=== PATIENT | female | born 1955 | race Caucasian/White ===

== ENCOUNTER 2019-02-19 23:28 | Emergency (ER) | payer BC, MEDICAID ==
[2019-02-19] MEDS ORDERED: Acetaminophen TAB* 325 MG PO ONE (23:59)
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
[2019-02-20] MEDS ORDERED: ED Ceftriaxone 2 GM/50 ML 2 GM/2 ML PREMIX.SET IVPB ONE (00:01)
[2019-02-20] MEDS ORDERED: Vancomycin(*) 1,000 MG in NS 0.9% 250 ML* 250 ML IVPB ONE (00:01)
[2019-02-20] MEDS ORDERED: NS 0.9% 1000 ML** 2,000 ML IV ONE (00:01)
[2019-02-20] MEDS ORDERED: Ondansetron INJ* 2 MG/ML VIAL IV ONE (00:10)
[2019-02-20] MEDS ORDERED: Morphine 4 MG/ML VIAL (1 ml) 4 MG/ML VIAL IV ONE ×2 (00:10→00:43)
[2019-02-20] MEDS ORDERED: Dexamethasone IV* 4 MG/ML 1 ML (4 MG) IV SLOW PU ONE (00:10)
[2019-02-20] MEDS ORDERED: cefTRIAXone(*) 2 GM in NS 0.9% 100 ML* 100 ML IVPB ONE (00:20)
[2019-02-20 00:50] LABS: ABS Monocytes 1.5 10^3/ul (0-0.8); ABS Neutrophils 7.2 10^3/ul (1.5-7.7); Eosinophil % 0.1 %; Hematocrit 34 % (35-47); Lymphocyte % 10.4 %; Mean Corpuscular HGB Conc 35 g/dL (31-36); Mean Corpuscular Hemoglobin 30 pg (27-31); Mean Corpuscular Volume 86 fL (80-97); Mean Platelet Volume 7.1 fL (7.4-10.4); Platelet Count 296 10^3/uL (150-450); Red Blood Count 3.99 10^6 /uL (3.70-4.87); Red Cell Distribution Width 12 % (10-15); White Blood Count 9.8 10^3/uL (3.5-10.8)
[2019-02-20 00:58] LABS: Rapid Strep Molecular POSITIVE (Negative)
[2019-02-20 01:07] LABS: Albumin 3.8 g/dL (3.2-5.2); Albumin/Globulin Ratio 1.1 (1-3); BUN/Creatinine Ratio 27.5 (8-20); C Reactive Protein 125.02 mg/L (<8.01); EGFR African American 195.7 (>60); EGFR Non-African American 161.7 (>60); Globulin 3.5 g/dL (2-4); Potassium 3.5 mmol/L (3.5-5.0); Total Bilirubin 0.8 mg/dL (0.2-1.0); Total Protein 7.3 g/dL (6.4-8.9)
[2019-02-20 01:11] LABS: Activated Partial Thrombo Time 30.2 seconds (26.0-38.0); INR 1.21 (0.82-1.09)
[2019-02-20] MEDS ORDERED: Gadoteridol* (CONTRAST) 279.3 MG/ML 10 ML IV ONE (01:49)
[2019-02-20 06:31] VITALS: BP 121/72
--- NOTE | 2019-02-20 17:56 | PN ---
Progress Note - Progress Note Date of Service: 02/20/19 Note: Pt. seen in ED for sore throat and neck pain. Treated with Augmentin. No report of cough per ED note. Final CXR read per radiology: IMPRESSION: 1. SMALL BILATERAL NONSPECIFIC UPPER LOBE INFILTRATES POSSIBLY REPRESENTING FIBROSIS VERSUS PNEUMONIA. 2. FINDINGS CONSISTENT WITH COPD. R1F No change in treatment needed at this time.
--- NOTE | 2019-02-21 18:57 | PN ---
Progress Note - Progress Note Date of Service: 02/21/19 Note: Received results of preliminary blood culture from microbiology which is positive for gram-negative bacilli. Patient seen on 05/22 and discharge home with diagnosis of strep throat and given prescription for Augmentin, Decadron and Percocet. Attempted to call patient at home to advise her to return to the ED. First call at 1730 received only a busy signal. Attempts to call next of kin and sister were not successful as both phone numbers are no longer in service. Second call to Ms. Fry at 1858 received only busy signal again. We will leave note for daytime mid-level to follow up further.
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
== END 2019-02-20 06:30 | disposition home or self-care (01) ==
LOC: ED 23:28
DX: J02.0 Streptococcal pharyngitis (principal); M47.812 Spondylosis without myelopathy or radiculopathy, cervical region; M25.78 Osteophyte, vertebrae; R91.8 Other nonspecific abnormal finding of lung field; G82.20 Paraplegia, unspecified
CPT/HCPCS: 36415; 71045; 72156; 80053; 83605; 85025; 85610; 85730; 86140; 87040; 87651; 96361; 96365; 96375; 99283; A9270-GY; A9579; J0696; J1100; J2270; J2405; J3370

== ENCOUNTER 2019-05-05 09:22 | Emergency (ER) | payer BC, MEDICAID ==
[2019-05-05 11:03] LABS: ABS Eosinophils 0.1 10^3/ul (0-0.6); ABS Lymphocytes 1.8 10^3/ul (1.0-4.8); ABS Monocytes 0.5 10^3/ul (0-0.8); ABS Neutrophils 1.5 10^3/ul (1.5-7.7); Eosinophil % 3.4 %; Hematocrit 35 % (35-47); Hemoglobin 12.1 g/dL (12.0-16.0); Lymphocyte % 45.9 %; Mean Corpuscular HGB Conc 35 g/dL (31-36); Mean Corpuscular Hemoglobin 30 pg (27-31); Mean Corpuscular Volume 87 fL (80-97); Mean Platelet Volume 7.5 fL (7.4-10.4); Nucleated Red Blood Cells % 0.1; Platelet Count 309 10^3/uL (150-450); Red Blood Count 4.05 10^6 /uL (3.70-4.87); Red Cell Distribution Width 12 % (10-15)
[2019-05-05 11:57] LABS: Albumin 4.1 g/dL (3.2-5.2); Albumin/Globulin Ratio 1.5 (1-3); BUN/Creatinine Ratio 32.6 (8-20); C Reactive Protein 13.9 mg/L (<8.01); Calcium 9.8 mg/dL (8.6-10.3); EGFR African American 166.6 (>60); EGFR Non-African American 137.6 (>60); Globulin 2.7 g/dL (2-4); Potassium 4.2 mmol/L (3.5-5.0); Total Bilirubin 0.4 mg/dL (0.2-1.0); Total Protein 6.8 g/dL (6.4-8.9)
[2019-05-05 13:18] VITALS: BP 110/74
--- NOTE | 2019-05-05 17:36 | ED ---
Skin Complaint - HPI Summary HPI Summary: Patient is a 63-year-old female who presents emergency department for evaluation of wound to her left buttocks times roughly one week. She is a paraplegic and states she occasionally gets pressure sores but feels this is different as it has a foul odor to it. She denies fever, chills, abdominal pain , nausea, vomiting. Symptoms are [id number] in severity. Touching it makes symptoms worse. Nothing makes symptoms better. - History of Current Complaint Chief Complaint: EDRashSkinAbscess Time Seen by Provider: 05/05/19 10:24 Stated Complaint: PRESSURE SORE PER PT Hx Obtained From: Patient Pain Intensity: 3 Pain Scale Used: 0-10 Numeric - Allergy/Home Medications Allergies/Adverse Reactions: Allergies Allergy/AdvReac Type Severity Reaction Status Date / Time No Known Allergies Allergy Verified 02/19/19 23:37 Home Medications: Home Medications Oxybutynin TAB* [Ditropan TAB*] 10 mg PO DAILY 05/05/19 [History Confirmed 05/05] PMH/Surg Hx/FS Hx/Imm Hx Previously Healthy: Yes Endocrine/Hematology History: Denies: Hx Diabetes Cardiovascular History: Denies: Hx Hypertension, Hx Pacemaker/ICD History: Denies: Hx Renal Disease Musculoskeletal History: Reports: Other Musculoskeletal History - Paraplegic Sensory History: Denies: Hx Hearing Aid Psychiatric History: Reports: Hx Substance Abuse - former IVDU Denies: Hx Panic Disorder - Surgical History Surgery Procedure, Year, and Place: BACK SURGERY-FUSION, BREAST IMPLANTS Infectious Disease History: No Infectious Disease History: Denies: Traveled Outside the [place] in Last 30 Days - Family History Known Family History: Positive: Non-Contributory Family History: mental illness - Social History Occupation: Retired Lives: With Family Alcohol Use: None Substance Use Type: Reports: None Smoking Status (MU): Never Smoked Tobacco Review of Systems Constitutional: Negative Negative: Fever Gastrointestinal: Negative Negative: Abdominal Pain, Vomiting, Nausea Genitourinary: Negative Positive: Other - wound to left buttocks All Other Systems Reviewed And Are Negative: Yes Physical Exam Triage Information Reviewed: Yes Vital Signs On Initial Exam: Initial Vitals Temp Pulse Resp BP Pulse Ox 99 F 70 18 120/76 100 05/05/19 09:25 05/05/19 09:25 05/05/19 09:25 05/05/19 09:25 05/05/19 09:25 Vital Signs Reviewed: Yes Appearance: Positive: Well-Appearing - Pt. sitting up in bed in NAD. Skin: Positive: Warm, Dry, Other - Large, roughly 6cm in diameter, annular area of erythema with superficial wet ulceration in the center. Small amount of yellowish discharge. Area does not extend into the anal or perineal region. Head/Face: Positive: Normal Head/Face Inspection Eyes: Positive: Normal, EOMI Neck: Positive: Supple Musculoskeletal: Positive: Other - Paraplegic Neurological: Positive: Normal, CN Intact II-III Psychiatric: Positive: Affect/Mood Appropriate Diagnostics - Vital Signs Vital Signs Temp Pulse Resp BP Pulse Ox 05/05/19 13:16 98.2 F 78 18 110/74 100 05/05/19 11:42 72 100 05/05/19 11:40 71 107/60 99 05/05/19 09:25 99 F 70 18 120/76 100 - Laboratory Lab Results: Lab Results 05/05/19 05/05/19 Range/Units 10:49 10:49 WBC 4.0 (3.5-10.8) 10^3/uL RBC 4.05 (3.70-4.87) 10^6 /uL Hgb 12.1 (12.0-16.0) g/dL Hct 35 (35-47) % MCV 87 (80-97) fL MCH 30 (27-31) pg MCHC 35 (31-36) g/dL RDW 12 (10-15) % Plt Count 309 (150-450) 10^3/uL MPV 7.5 (7.4-10.4) fL Neut % (Auto) 36.6 % Lymph % (Auto) 45.9 % Eddy % (Auto) 13.1 % Eos % (Auto) 3.4 % Baso % (Auto) 1.0 % Absolute Neuts (auto) 1.5 (1.5-7.7) 10^3/ul Absolute Lymphs (auto) 1.8 (1.0-4.8) 10^3/ul Absolute Monos (auto) 0.5 (0-0.8) 10^3/ul Absolute Eos (auto) 0.1 (0-0.6) 10^3/ul Absolute Basos (auto) 0.0 (0-0.2) 10^3/ul Absolute Nucleated RBC 0.0 10^3/ul Nucleated RBC % 0.1 Sodium 139 (135-145) mmol/L Potassium 4.2 (3.5-5.0) mmol/L Chloride 101 (101-111) mmol/L Carbon Dioxide 34 H (22-32) mmol/L Anion Gap 4 (2-11) mmol/L BUN 15 (6-24) mg/dL Creatinine 0.46 L (0.51-0.95) mg/dL Est GFR ( Amer) 166.6 (>60) Est GFR (Non-Af Amer) 137.6 (>60) BUN/Creatinine Ratio 32.6 H (8-20) Glucose 76 (70-100) mg/dL Calcium 9.8 (8.6-10.3) mg/dL Total Bilirubin 0.40 (0.2-1.0) mg/dL AST 18 (13-39) U/L ALT 12 (7-52) U/L Alkaline Phosphatase 76 (34-104) U/L C-Reactive Protein 13.90 H (<8.01) mg/L Total Protein 6.8 (6.4-8.9) g/dL Albumin 4.1 (3.2-5.2) g/dL Globulin 2.7 (2-4) g/dL Albumin/Globulin Ratio 1.5 (1-3) Result Diagrams: 05/05/19 10:49 05/05/19 10:49 Lab Statement: Any lab studies that have been ordered have been reviewed, and results considered in the medical decision making process. Course/Dx - Course Course Of Treatment: Patient with wound cellulitis to her left buttocks. She is afebrile and well appearing. Labs show normal WBC and minimally elevated CRP. Wound culture obtained and was positive for MRSA. Patient started on clindamycin. Advised appropriate wound care. Follow-up with PCP in 2-3 days for wound check. Return to the ER for fever, increased redness, swelling, pain or if concerned. Patient understands and agrees with plan. - Differential Diagnoses - Skin Complaint Differential Diagnoses: Abscess, Cellulitis - Diagnoses Provider Diagnoses: Wound cellulitis Discharge ED - Sign-Out/Discharge Documenting (check all that apply): Patient Departure Patient Received Moderate/Deep Sedation with Procedure: No - Discharge Plan Condition: Good Disposition: HOME Prescriptions: Clindamycin HCl 300 mg PO QID #40 capsule Patient Education Materials: Wound Infection (ED), Cellulitis (ED) Referrals: India Ryan DO [Doctor of Osteopathy] - Additional Instructions: Schedule a follow up appointment with your PCP for wound check in 3 days Take antibiotic as directed Keep wound clean and dry Return to ER for increased redness, swelling, pain, fever, or if concerned - Billing Disposition and Condition Condition: GOOD Disposition: Home
== END 2019-05-05 13:16 | disposition home or self-care (01) ==
LOC: ED 09:22
DX: S31.829A Unspecified open wound of left buttock, initial encounter (principal); L03.317 Cellulitis of buttock; B95.62 Methicillin resistant Staphylococcus aureus infection as the cause of diseases classified elsewhere; X58.XXXA Exposure to other specified factors, initial encounter; Y92.9 Unspecified place or not applicable; G82.20 Paraplegia, unspecified
CPT/HCPCS: 36415; 80053; 85025; 86140; 87070; 87077; 87186; 87205; 87640; 87641; 99283